=== PATIENT | male | born 1990 | race Caucasian/White ===

== ENCOUNTER → 2017-09-11 | Outpatient (CLI) | payer OTHER ==
--- NOTE | 2017-09-11 14:49 | REP ---
Clinical: Acute torticollis. Technique: AP, lateral, flexion/extension, swimmer's, bilateral oblique and open mouth views of the cervical spine. Findings: Lateral view demonstrates reversal of normal lordosis while frontal view demonstrates mild cervical angulation to the left. There is no evidence for acute fracture / compression injury or subluxation. Spinous processes are intact. Oblique views demonstrate patent neural foramen. C1-C2 articulation and odontoid process appear normal. Prevertebral and paravertebral soft tissues are normal. Impression: Reversal of lordosis and angulation to the left side. Otherwise unremarkable examination. Signed by Juan Sheffield MD 09/11/2017 02:40 P
== END ==
LOC: M LRY 14:16
PROVIDERS: ATTEND Physician Assistant
DX: M43.6 Torticollis (principal)
CPT/HCPCS: 72052; G0463